=== PATIENT | male | born 1980 | race American Indian/Alaskan Native ===

== ENCOUNTER 2024-08-08 17:15 | Emergency (ER) | payer MEDICARE, MEDICAID, SELFPAY ==
[2024-08-08 17:16] VITALS: BMI 37.3
--- NOTE | 2024-08-08 17:19 | EKG_ITS ---
[facility] Test Date: 2024-08-08 Pat Name: NANCY LAURENT Department: Room: - Gender: Male Trackman: : 1980 Requested By: ED Temporary Provider Order Number: [id number] Reading MD: ED Temporary Provider Measurements Intervals Pope Rate: 66 P: 8 CT: 168 QRS: -9 QRSD: 157 T: 29 QT: 388 QTc: 408 Interpretive Statements SINUS RHYTHM RIGHT BUNDLE BRANCH BLOCK [120+ ms QRS DURATION, UPRIGHT V1, 40+ ms S IN I/aVL/V4/V5/V6] Compared to ECG 01/17/2022 22:03:28 No significant changes /store/S0/[id number]/[id number].pdf
[2024-08-08 17:30] VITALS: BP 149/80; PULSE 64; RESP 18; TEMP 36.8; O2SAT 97
--- NOTE | 2024-08-08 17:46 | XR_ITS ---
Examination: PA lateral chest 2 views Technique: Upright PA lateral chest 2 views Exam date and time: August 08, 2024 1813 hrs. Comparison January 18, 2022 Indications: Cold 3 days with fever today. Findings: Mild enlargement left ventricle Mild vascular congestion. No lobar pneumonia or pulmonary edema Impression: Mild enlargement left ventricle Mild vascular congestion No lobar pneumonia
--- NOTE | 2024-08-08 17:47 | PD.EDRME ---
Rapid Medical Screening Exam RME Arrival date/time: 08/08/24 17:15 43-year-old male presents the emergency department complains of chest pain and pain with deep inspiration Chief Complaint: Chest Pain Vital signs: Vital Signs Temperature 98.2 F 08/08/24 17:30 Pulse Rate 64 08/08/24 17:30 Respiratory Rate 18 08/08/24 17:30 Blood Pressure 149/80 H 08/08/24 17:30 Pulse Oximetry (%) 97 08/08/24 17:30 Oxygen Delivery Method Room Air 08/08/24 17:30
[2024-08-08 18:14] LABS: Basophils % (Auto) 0 % (0-2.5); Eosinophils % (Auto) 0 % (0-10); Hematocrit 30.8 % (41.0-53.0); Hemoglobin 9.7 g/dL (13.5-16.0); Immature Granulocytes % (Auto) 0 % (0-0); Immature Granulocytes Auto 0.04 Thou/mm3 (0.00-0.00); Lymphocytes # (Auto) 0.3 Thou/mm3 (1.0-4.8); Lymphocytes % (Auto) 3 % (10-50); Mean Corpuscular HGB Conc 31.5 g/dl (31.0-37.0); Mean Corpuscular Hemoglobin 30.1 pg (25.0-35.0); Mean Corpuscular Volume 96 fL (80-100); Monocytes # (Auto) 0.7 Thou/mm3 (0.0-0.8); Monocytes % (Auto) 8 % (0-12); Neutrophils # (Auto) 7.9 Thou/mm3 (1.8-7.7); Neutrophils % (Auto) 88 % (37-80); Nucleated Red Blood Cell % 0 /100 WBC (0); Platelet Count 202 Thou/mm3 (140-440); RDW Standard Deviation 49.1 fL (35.1-43.9); Red Blood Count 3.22 Miln/mm3 (4.50-5.90)
[2024-08-08 18:29] LABS: B-Type Natriuretic Peptide 142 pg/mL (0-100)
[2024-08-08 18:31] LABS: Alanine Aminotransferase 11 U/L (10-49); Albumin, Serum 3.9 gm/dL (3.5-5.0); Alkaline Phosphatase 118 U/L (46-116); Anion Gap 7 (7-16); Aspartate Amino Transferase < 10 U/L (0-34); BUN/Creatinine Ratio 12 Ratio (12-20); Bilirubin,Total 0.3 mg/dL (0.3-1.2); Blood Urea Nitrogen 28 mg/dL (9-23); Calcium 9.1 mg/dL (8.3-10.6); Calcium (Corrected) 9.2 mg/dL (8.5-10.1); Carbon Dioxide 18.5 mMol/L (20.0-31.0); Chloride 111 mMol/L (98-107); Creatinine (Component) 2.3 mg/dL (0.6-1.3); Estimated Creatinine Clearance 53.8 mL/min (>60); Glucose 116 mg/dL (74-106); Magnesium 1.9 mg/dL (1.6-2.6); Osmolality,Calculated 278 (275-295); Potassium 5.8 mMol/L (3.4-5.1); Sodium 136 mMol/L (136-145); Total Protein 5.9 gm/dL (5.7-8.2); Troponin I 0.026 ng/mL (0.0-0.045); eGFR 35 See Note
[2024-08-08 19:18] LABS: Partial Thromboplastin Time 31.6 Seconds (22.0-36.0); Prothrombin Time 11.3 Seconds (9.0-12.2)
[2024-08-08 19:53] LABS: D-Dimer < 250 ng/mL (<600)
[2024-08-08 19:56] LABS: Troponin I 0.026 ng/mL (0.0-0.045)
--- NOTE | 2024-08-08 20:18 | PD.EDCHEST ---
ED Chest Pain RME/HPI General Chief Complaint: Chest Pain Stated Complaint: CHEST PAIN AND SHAKING WITH VOMITING Time Seen by Provider: 08/08/24 18:51 Arrival date/time: 08/08/24 17:15 Limitations: no limitations RME / HPI RME / HPI narrative: 08/08/24 17:15 43-year-old male presents the emergency department complains of chest pain and pain with deep inspiration DR. SMITH MAIN ED EVALUATION: 43 year old male presents to the Emergency Department with complaint of chest pain. Pain is described as aching and rated moderate in severity. Pain with deep inspiration. PMHx: Hypercholesterolemia, ESRD s/p kidney transplant in 2018. Electric Needle Specialist: Dr. Blair at [place]. Social Hx: No tobacco, alcohol, or substance use. Related Data Home Medications ?Medication ?Instructions ?Recorded ?Confirmed alprazolam 1 mg tablet 1 mg PO BID 12/24/21 01/18/22 levothyroxine 75 mcg tablet 75 mcg PO QDAY 12/24/21 01/18/22 mycophenolate mofetil 250 mg 750 mg PO BID 12/24/21 01/18/22 capsule pantoprazole 40 mg tablet,delayed 40 mg PO QDAY 12/24/21 01/18/22 release paroxetine HCl 40 mg tablet 40 mg PO QDAY 12/24/21 01/18/22 prednisone 5 mg tablet 5 mg PO QDAY 12/24/21 01/18/22 tacrolimus 1 mg capsule, 1 mg PO BID 12/24/21 01/18/22 immediate-release Previous Rx's ?Medication ?Instructions ?Recorded ezetimibe 10 mg tablet 10 mg PO QDAY #30 tabs 12/25/21 Allergies Allergy/AdvReac Type Severity Reaction Status Date / Time amoxicillin [From Augmentin] Allergy Intermediate Diarrhea Verified 08/08/24 17:18 clavulanic acid Allergy Intermediate Diarrhea Verified 08/08/24 17:18 [From Augmentin] Review of Systems Review of Systems Systems Reviewed: All systems reviewed, normal except as documented Narrative Review of Systems: GEN: No fever, no chills, no weight loss EYES: No discharge, no visual changes, no pain HEENT: No ear pain, no congestion, no sore throat PULM: No shortness of breath, no cough, no congestion CV: + chest pain, no dyspnea on exertion, no palpitations GI: No nausea, no vomiting, no diarrhea, no pain, no constipation : No frequency, no urgency and no dysuria MUSC/SKEL: No joint pain, no back pain SKIN: No rash PSYCH: No hallucinations, no depression HEME/LYMPH: No easy bleeding or bruising tendencies NEURO: No weakness, no headache Past Medical History Past Medical History CARDIAC: Positive Hypercholesterolemia and Hypotension (RECENTLY); Negative Congestive Heart Failure RESPIRATORY: Negative Chronic Obstructive Pulmonary Disease (COPD) GENITOURINARY: Positive Renal Disease (1 KIDNEY TRANSPLANTED IN AND OTHER 2 NON-FUNCTIONING) and Dialysis ((HD [id number])) ENT: Positive Cataracts ENDOCRINE: Positive Hypothyroidism; Negative Diabetes Mellitus Type 1 or Diabetes Mellitus Type 2 Social History SMOKING STATUS: Never smoker SUBSTANCE USE: does not use ED Exam General Limitations: Present no limitations General appearance: Present alert; Absent anxious, lethargic or obtunded Head Head exam: Present atraumatic, normocephalic and normal inspection Eye Eye exam: Present normal appearance and EOMI; Absent scleral icterus ENT ENT exam: Present normal exam, normal oropharynx and mucous membranes dry Neck Neck exam: Present normal inspection, full ROM and trachea midline Chest Chest inspection: Present normal inspection and symmetric chest wall rise Respiratory Respiratory exam: Present normal lung sounds bilaterally Cardiovascular Cardiovascular exam: Present regular rate, normal rhythm and normal heart sounds Abdominal Exam Abdominal exam: Present soft and distention; Absent normal bowel sounds Extremities Exam Extremities exam: Present normal inspection Back Exam Back exam: Present normal inspection and full ROM Neurological Exam Neurological exam: Present alert, oriented X3 and normal gait Psychiatric Psychiatric exam: Present normal affect and normal mood Skin Skin exam: Present warm, dry, intact and normal color Course Course Course Narrative: Pt eloped Quality Measures none Orders Category Date Time Status EKG (ED ONLY) *Do not use* NOW Care 08/08/24 17:19 Completed EKG (ED Only) Stat Exams 08/08/24 17:19 Draft XR chest 2V Stat Exams 08/08/24 17:46 Completed B-Type Natriuretic Peptide Stat Lab 08/08/24 17:53 Completed CBC Stat Lab 08/08/24 17:53 Completed Comprehensive Metabolic Panel Stat Lab 08/08/24 17:53 Completed D-Dimer Stat Lab 08/08/24 19:25 Completed Drug Screen,Urine Stat Lab 08/08/24 17:46 Ordered Magnesium Stat Lab 08/08/24 17:53 Completed Partial Thromboplastin Time Stat Lab 08/08/24 17:53 Completed Prothrombin Time with INR Stat Lab 08/08/24 17:53 Completed Troponin I Stat Lab 08/08/24 17:53 Completed Troponin I Stat Lab 08/08/24 19:25 Completed Urinalysis Stat Lab 08/08/24 17:46 Ordered Vital Signs Vital signs: Vital Signs Temperature 98.2 F 08/08/24 17:30 Pulse Rate 64 08/08/24 17:30 Respiratory Rate 18 08/08/24 17:30 Blood Pressure 149/80 H 08/08/24 17:30 Pulse Oximetry (%) 97 08/08/24 17:30 Oxygen Delivery Method Room Air 08/08/24 17:30 Procedures -ED EKG Interpretation #1: Date of EK08/08/24 Time of EK:40 Rate: 66 Interpretation: Interpreted by me Additional EKG comment: sinus rhythm, rate 66, right bundle branch block, ST changes in lead 3 Chest Pain MDM Narrative MDM Narrative:: Yulia Cabrera am scribing for and in the presence of Dr. Smith. Patient data External records reviewed:: [facility] previous records (Reviewed last admission record from 01/17/22 through 01/19/22, patient admitted for the following: Urinary tract infection, Acute hyperkalemia, CKD (chronic kidney disease), Severe sepsis.) Clinical information provided by:: patient Social determinants that could affect healthcare access:: none Patient has the following chronic illnesses:: Hypercholesterolemia, ESRD s/p kidney transplant in 2018. Electric Needle Specialist: Dr. Blair at [place]. How is presenting disease/condition affected by chronic disease/condition?: exacerbated by Evaluation data The following diagnostics were reviewed and interpreted by me:: lab results, radiology exam(s) and EKG tracing(s) Lab and/or radiology exams considered but not ordered:: none Interpretation Summary: Procedure(s): XR chest 2V Accession Number(s): [id number] cc: Rudy (VALERIE)Tim NP; Ranjit Shook MD; LESTER ESPINOSA~ Examination: PA lateral chest 2 views Technique: Upright PA lateral chest 2 views Exam date and time: August 08, 2024 1813 hrs. Comparison January 18, 2022 Indications: Cold 3 days with fever today. Findings: Mild enlargement left ventricle Mild vascular congestion. No lobar pneumonia or pulmonary edema Impression: Mild enlargement left ventricle Mild vascular congestion No lobar pneumonia Dictated By: Ranjit Shook MD Medications / Prescriptions Medications or Prescriptions considered but not ordered:: none Medication administrations:: see above if any Consultations Consultation(s) initiated? (list below): No Consultation #1 (Physician, Specialty, Details): Patient eloped. Diagnosis Chest Pain Differential Diagnosis: stable angina, unstable angina pectoris, atypical chest pain, st elevation myocardial infarction, costochondritis and chest pain Most likely diagnosis given after review of the tests above:: Patient eloped. Admission Indicated Admission indicated?: not indicated Explain why admission is indicated or not indicated:: Patient eloped. Admission Request Was there a request for admission?: No Disposition Plan Disposition Plan: other (specify) (Patient eloped.) Discharge Plan Plan Patient Disposition: Elopement Prescriptions/Referrals Prescriptions/Med Rec: No Action levothyroxine 75 mcg tablet 75 mcg PO QDAY pantoprazole 40 mg tablet,delayed release (DR/EC) 40 mg PO QDAY paroxetine HCl 40 mg tablet 40 mg PO QDAY alprazolam 1 mg tablet 1 mg PO BID Patient Comments: take 1 tablet by mouth twice a day mycophenolate mofetil 250 mg capsule 750 mg PO BID Patient Comments: TAKE 3 CAPSULES (750 MG TOTAL) BY MOUTH TWICE A DAY OR DIRECTED. tacrolimus 1 mg capsule 1 mg PO BID Patient Comments: take 1 capsule by mouth twice a day prednisone 5 mg tablet 5 mg PO QDAY Patient Comments: TAKE 1 TABLET BY MOUTH DAILY ezetimibe 10 mg tablet 10 mg PO QDAY Qty: 30 2RF Referrals: Lester Espinosa PA-C [Primary Care Provider] - In 1 week Problem List Clinical Impression: Eloped from emergency department Patient/Caregiver Discharge Instructions Print Language: Bangladeshi
--- NOTE | 2024-08-08 20:33 | PC.NURSE ---
NO ANSWER AT ER LOBBY OR OUTSIDE ER TO BE PUT TO ROOM.
--- NOTE | 2024-08-08 21:02 | PC.NURSE ---
PT CALLED BACK TO A ROOM AND NO ANSWER
--- NOTE | 2024-08-08 21:13 | PC.NURSE ---
PT CALLED AND NO ANSWER
== END 2024-08-08 21:13 | disposition left against medical advice (07) ==
PROVIDERS: Nurse Practitioner Primary Care; Emergency Provider Emergency Medicine; PCP Physician Assistant
DX: R07.9 Chest pain, unspecified (principal); Z53.29 Procedure and treatment not carried out because of patient's decision for other reasons; E78.00 Pure hypercholesterolemia, unspecified; N18.6 End stage renal disease; Z94.0 Kidney transplant status
CPT/HCPCS: 36415; 71046; 80053; 80307; 81001; 83735; 83880; 84484; 85025; 85379; 85610; 85730; 93005; 99281